=== PATIENT | male | born 1945 | race Caucasian/White ===

== ENCOUNTER 2022-06-26 20:44 | Emergency (ER) | payer SELFPAY ==
[~2022-06-26] VITALS: Ht 167.6 cm; Wt 70.3 kg
[2022-06-26 21:08] VITALS: BP 157/87
--- NOTE | 2022-06-26 22:15 | NUR ---
RECEIVED CALL FROM ADMITTING THAT PT LEFT FACILTY NO LONGER WISHING TO BE EVALUTATED. PT LWBS
== END 2022-06-26 22:15 | disposition left against medical advice (07) ==
LOC: MED 20:44
DX: R10.13 Epigastric pain (principal); R11.0 Nausea; R19.7 Diarrhea, unspecified; Z53.21 Procedure and treatment not carried out due to patient leaving prior to being seen by health care provider
CPT/HCPCS: 99281